=== PATIENT | female | born 1945 | race Caucasian/White ===

== ENCOUNTER 2017-07-05 09:10 | Emergency (ER) ==
[2017-07-05 09:21] VITALS: BP 175/83; TEMP 99.9; BMI 27.6
[2017-07-05] MEDS ORDERED: DUONEB NEB STA ×2 (09:29→12:07)
[2017-07-05] MEDS ORDERED: ZOFRAN 4 MG/2 ML IM STA (09:31)
[2017-07-05] MEDS ORDERED: SODIUM CHLORIDE 1,000 ML IV STA (09:32)
[2017-07-05] MEDS ORDERED: SOLU-MEDROL 125 MG IVP STA (09:32)
--- NOTE | 2017-07-05 10:56 | ED.PDOC ---
General ED Provider: Dr. MAURICE GEE Chief Complaint: Respiratory Complaint Stated Complaint: cough , wheez , flu like symp, short of air Time Seen by Physician: 09:15 (seen with nurse at all times (nereida)) Mode of Arrival: Walk-In Information Source: Patient Exam Limitations: No limitations Primary Care Provider: ALYSON JULIEN Nursing and Triage Documentation Reviewed and Agree: Yes Reviewed sepsis parameters & appropriate labs ordered?: Yes System Inflammatory Response Syndrome: Not Applicable Sepsis Protocol: For patient's 13 years and over: Temp is 96.8 and below OR 101 and greater Pulse >90 BPM Resp >20/minute Acutely Altered Mental Status Are patient's symptoms suggestive of a new infection, such as: -Pneumonia -Skin, Soft Tissue -Endocarditis -UTI -Bone, Joint Infection -Implantable Device -Acute Abdominal Infection -Wound Infection -Meningitis -Blood Stream Catheter Infection -Unknown System Inflammatory Response Syndrome: Not Applicable Respiratory Complaint Exam - Respiratory Complaint/Exam Onset/Duration: 1 week Symptoms Are: Still present Timing: Intermittent Initial Severity: Moderate Current Severity: Mild Location: Chest Character: Reports: Non-productive cough, Dry cough Aggravating: Reports: None Associated Signs and Symptoms: Reports: URI, Nasal congestion, Sore throat Related History: Reports: Similar episode History of Healthcare-Acquired Pneumonia: No Related Surgical History: Reports: None Pulmonary Embolism Risk Factors: None Cardiac Risk Factors: Reports: None Review of Systems - Review Of Systems Constitutional: Reports: Malaise, Loss of appetite Eyes: Reports: No symptoms Ears, Nose, Mouth, Throat: Reports: No symptoms Respiratory: Reports: Cough, Short of air, Wheezing Cardiac: Reports: No symptoms GI: Reports: No symptoms : Reports: No symptoms Musculoskeletal: Reports: No symptoms Skin: Reports: No symptoms Neurological: Reports: No symptoms Endocrine: Reports: No symptoms Hematologic/Lymphatic: Reports: No symptoms All Other Systems: Reviewed and Negative Past Medical History - Past Medical History Previously Healthy: Yes Endocrine: Reports: None Cardiovascular: Reports: None Respiratory: Reports: None Hematological: Reports: None Gastrointestinal: Reports: None Genitourinary: Reports: None Neuro/Psych: Reports: None Musculoskeletal: Reports: None Cancer: Reports: None Last Menstrual Period: n/a - Surgical History General Surgical History: Reports: None - Family History Family History: Reports: None - Social History Smoking Status: Never smoker Hx Substance Use: No Alcohol Screening: None Physical Exam - Physical Exam Appearance: Ill-appearing Ill-appearing: Mild Pain Distress: Mild Eyes: KEDAR, EOMI, Conjunctiva clear ENT: Ears normal, Nose normal, Oropharynx normal Respiratory: Rhonchi Cardiovascular: RRR, Pulses normal, No rub, No murmur GI/: Soft, Nontender, No masses, Bowel sounds normal, No Organomegaly Musculoskeletal: Normal strength, ROM intact, No edema, No calf tenderness Skin: Warm, Dry, Normal color Neurological: Sensation intact, Motor intact, Reflexes intact, Cranial nerves intact, Alert, Oriented Psychiatric: Affect appropriate, Mood appropriate Critical Care Note - Critical Care Note Total Time (mins): 0 Course - Course Hematology/Chemistry: 07/05/17 09:40 07/05/17 09:40 Orders, Labs, Meds: Lab Review 07/05/17 07/05/17 07/05/17 09:40 09:40 09:40 WBC 14.76 H RBC 3.84 L Hgb 12.6 Hct 36.3 L MCV 94.5 MCH 32.8 H MCHC 34.7 RDW Coeff of Michael 13.0 Plt Count 244 Immature Gran % (Auto) 0.8 Neut % (Auto) 87.3 Lymph % (Auto) 4.5 L Florence % (Auto) 7.0 Eos % (Auto) 0.0 Baso % (Auto) 0.4 Immature Gran # (Auto) 0.1 Neut # 12.9 H Lymph # 0.7 Florence # 1.0 Eos # 0.0 Baso # 0.1 Puncture Site L rad O2 Saturation 90.0 L ABG pH 7.385 ABG pCO2 50.7 H ABG pO2 60.0 L ABG HCO3 30.3 H ABG Total CO2 32 H ABG Base Excess 5 H Shiv Test + FiO2 % 21.0 Sodium 128 L Potassium 4.1 Chloride 94 L Carbon Dioxide 28 Anion Gap 10.1 BUN 12 Creatinine 0.64 Estimated GFR (MDRD) 91.00 BUN/Creatinine Ratio 18.75 Glucose 126 H Calcium 8.8 Total Bilirubin 1.2 AST 26 ALT 26 Alkaline Phosphatase 107 Total Creatine Kinase 240 CK-MB (CK-2) 7.2 H* CK-MB (CK-2) % 3.50806 Troponin I 0.0500 Total Protein 7.6 Albumin 3.3 L Globulin 4.3 Albumin/Globulin Ratio 0.77 Procalcitonin Influenza A (Rapid) Influenza B (Rapid) 07/05/17 07/05/17 09:40 09:40 WBC RBC Hgb Hct MCV MCH MCHC RDW Coeff of Michael Plt Count Immature Gran % (Auto) Neut % (Auto) Lymph % (Auto) Florence % (Auto) Eos % (Auto) Baso % (Auto) Immature Gran # (Auto) Neut # Lymph # Florence # Eos # Baso # Puncture Site O2 Saturation ABG pH ABG pCO2 ABG pO2 ABG HCO3 ABG Total CO2 ABG Base Excess Shiv Test FiO2 % Sodium Potassium Chloride Carbon Dioxide Anion Gap BUN Creatinine Estimated GFR (MDRD) BUN/Creatinine Ratio Glucose Calcium Total Bilirubin AST ALT Alkaline Phosphatase Total Creatine Kinase CK-MB (CK-2) CK-MB (CK-2) % Troponin I Total Protein Albumin Globulin Albumin/Globulin Ratio Procalcitonin 0.16 Influenza A (Rapid) Negative by naat Influenza B (Rapid) Negative by naat Orders Category Date Time Status ABG DRAW REQUEST Stat CARDIO 07/05/17 09:29 Completed EKG-(ED ONLY) Stat CARDIO 07/05/17 09:30 Completed NEBULIZER TREATMENT Stat CARDIO 07/05/17 09:29 Completed NEBULIZER TREATMENT Stat CARDIO 07/05/17 12:07 Ordered NPO REMINDER: IMAGING ONCE CARE 07/05/17 10:26 Completed ED IV/MEDIPORT/POWERPORT .ONCE EMERGENCY 07/05/17 09:32 Active ABG Stat LAB 07/05/17 09:40 Completed BLOOD CULTURE (ED ONLY) Stat LAB 07/05/17 09:40 Received CBC W/ AUTO DIFF Stat LAB 07/05/17 09:40 Completed COMPREHENSIVE METABOLIC PANEL Stat LAB 07/05/17 09:40 Completed CREATINE KINASE Stat LAB 07/05/17 09:40 Completed FLU A/B MOLECULAR Stat LAB 07/05/17 09:40 Completed MOLECULAR GROUP A STREP Stat LAB 07/05/17 09:40 Completed PROCALCITONIN Stat LAB 07/05/17 09:40 Completed TROPONIN I Stat LAB 07/05/17 09:40 Completed 0.9 % Sodium Chloride [Saline Flush] MEDS 07/05/17 09:32 Active 1 syr IVF PRN PRN Azithromycin [Zithromax] MEDS 07/05/17 12:06 Stat 1,000 mg PO ONCE STA Ceftriaxone Sodium [Rocephin] MEDS 07/05/17 12:10 Discontinued 1 gm .ROUTE .STK-MED ONE Ceftriaxone Sodium [Rocephin] 1 gm MEDS 07/05/17 12:06 Ordered 0.9 % Sodium Chloride [Sodium Chloride] 50 ml IV ONCE Ipratropium/Albuterol Neb [Duoneb] MEDS 07/05/17 09:29 Discontinued 1 vial NEB ONCE STA Ipratropium/Albuterol Neb [Duoneb] MEDS 07/05/17 12:07 Stat 1 vial NEB ONCE STA Methylprednisolone Sod Succ/Pf [Solu-Medrol 125 mg] MEDS 07/05/17 09:32 Discontinued 40 mg IVP ONCE STA Sodium Chloride 0.9% [Sodium Chloride] 1,000 ml MEDS 07/05/17 09:32 Active IV 125 mls/hr CT CHEST PE PROTOCOL Stat RADS 07/05/17 10:26 Completed Medications Generic Name Dose Route Start Last Admin Trade Name Freq PRN Reason Stop Dose Admin Sodium Chloride 1,000 mls @ 125 mls/hr 07/05/17 09:32 Sodium Chloride IV 07/05/17 17:31 .Q8H STA Ceftriaxone Sodium 1 gm/ 50 mls @ 75 mls/hr 07/05/17 12:06 Sodium Chloride IV 07/05/17 12:45 ONCE STA Sodium Chloride 1 syr 07/05/17 09:32 07/05/17 09:59 Saline Flush IVF 1 syr PRN PRN Administration To flush IV Discontinued Medications Generic Name Dose Route Start Last Admin Trade Name Freq PRN Reason Stop Dose Admin Albuterol/Ipratropium 1 vial 07/05/17 09:29 07/05/17 09:45 Duoneb NEB 07/05/17 09:30 1 vial ONCE STA Administration Albuterol/Ipratropium 1 vial 07/05/17 12:07 Duoneb NEB 07/05/17 12:08 ONCE STA Azithromycin 1,000 mg 07/05/17 12:06 Zithromax PO 07/05/17 12:07 ONCE STA Methylprednisolone Sodium Succinate 40 mg 07/05/17 09:32 07/05/17 09:55 Solu-Medrol 125 Mg IVP 07/05/17 09:33 40 mg ONCE STA Administration Vital Signs: Temp Pulse Resp BP Pulse Ox 07/05/17 09:10 99.9 F H 84 20 175/83 H 90 L Departure - Departure Time of Disposition: 13:00 (pmd wants to see pt in office ) Disposition: HOME SELF-CARE Discharge Problem: Hyponatremia, Viral syndrome Instructions: Viral Syndrome (ED), Hyponatremia (ED) Condition: Good Pt referred to PMD for follow-up: Yes IPMP verified?: Yes Additional Instructions: Please call your Family Physician as soon as possible to schedule a follow-up appointment. Allergies/Adverse Reactions: Allergies No Known Allergies Allergy (Unverified 07/05/17 09:16) Home Medications: Ambulatory Orders Cyclophosphamide 50 mg PO EVERY OTHER DAY 07/05/17 Diclofenac Sodium 75 mg PO BID 07/05/17 Oseltamivir Phosphate [Tamiflu] 75 mg PO Q12HR 07/05/17 Prednisone 5 mg PO DIRECTED 07/05/17 Spironolactone 50 mg PO DAILY 07/05/17 Disposition Discussed With: Patient
--- NOTE | 2017-07-05 11:57 | CT ---
EXAM: CT Angiogram Chest. HISTORY: Shortness of air, cough. COMPARISON: None available. TECHNIQUE: Multiple axial images of the chest were obtained following intravenous administration of 100 mL of Omnipaque 350, low osmolar. Images were reformatted in the sagittal and coronal plane. 3- D and maximum intensity projection reformatted images were created on an independent workstation. FINDINGS: No mediastinal, hilar, or axillary lymphadenopathy identified. Heart is mildly enlarged. Atherosclerotic calcifications present. No pericardial effusion is seen. No pulmonary arterial filling defects are identified. Calcified granulomatous changes noted. There is mild bronchial thickening within both lungs. No consolidation, pleural effusion or pneumothorax i dentified. 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 There are old bilateral rib fr actures as well as T6 and T8 vertebral compression deformities. IMPRESSION: 1. No evidence for pulmonary embolus. 2. Mild bilateral bronchial thickening most likely due to infectious/inflammatory process.
[2017-07-05] MEDS ORDERED: ZITHROMAX PO STA (12:06)
[2017-07-05] MEDS ORDERED: ROCEPHIN 1 GM in SODIUM CHLORIDE 50 ML IV STA (12:06)
[2017-07-05] MEDS ORDERED: ROCEPHIN ONE (12:10)
[2017-07-05] MEDS ORDERED: TUSSIONEX PO STA (12:13)
[2017-07-05] MEDS ORDERED: SODIUM CHLORIDE 50 ML IV ONE (12:20)
== END 2017-07-05 13:14 | disposition home or self-care (01) ==
LOC: ED 09:10
DX: E87.1 Hypo-osmolality and hyponatremia (principal); B34.9 Viral infection, unspecified; R06.02 Shortness of breath; R05 Cough
CPT/HCPCS: 36415; 80053; 82550; 82553; 82803; 84145; 84484; 85025; 87040; 87502; 87651; 93005; 93010; 94640; 96365; 96366; 96375; 99283